=== PATIENT | female | born 2000 | race Caucasian/White ===

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

== ENCOUNTER 2021-01-21 03:03 | Emergency (ER) | payer OTHER ==
[2021-01-21 03:27] LABS: BASO % 0.2 % (0.0-1.0); LYMPH # 3.2 10*3/uL (1.3-4.4); LYMPH % 26.2 % (27.0-41.0); MEAN CORPUSCULAR HGB 30.5 pg (27.0-31.0); MEAN CORPUSCULAR HGB CONC 32.8 g/dl (33.0-37.0); MONO # 1.2 10*3/uL (0.1-1.0); NEUT # 7.7 10*3/uL (2.3-7.9); NEUT % 63.2 % (47.0-73.0); PLATELET COUNT AUTOMATED 250 10*3/uL (130-400); RED CELL DISTRI WIDTH 13.4 % (0-14.5); WHITE BLOOD COUNT 12.2 10*3/uL (4.8-10.8)
[2021-01-21 03:28] LABS: BILIRUBIN Negative (Negative); BLOOD Negative (Negative); CLARITY Clear (Clear); COLOR Yellow (Yellow); GLUCOSE Negative (Negative); KETONE Negative (Negative); LEUKO ESTERASE Negative (Negative); NITRITE Positive (Negative); PH 5.5 (4.5-8.0); SPECIFIC GRAVITY <= 1.005 (1.001-1.030); UROBILINOGEN 0.2 E.U./dl (0.0-1.0)
[2021-01-21 03:42] LABS: URINE AMPHETAMINES < 1000 (1000ng/ml); URINE BENZODIAZEPINES < 200 (200ng/ml); URINE CANNABINOIDS (THC) > 50 (50ng/ml); URINE COCAINE < 300 (300ng/ml); URINE METHADONE < 300 (300ng/ml); URINE OPIATES < 300 (300ng/ml)
[2021-01-21 03:43] LABS: BACTERIA 3+
[2021-01-21 03:44] LABS: ALBUMIN 3.9 gm/dl (3.1-4.5); ALKALINE PHOSPHATASE 53 U/L (45-117); BUN 10 mg/dl (7-24); CHLORIDE 106 mmol/L (98-107); CREATININE 0.72 mg/dL (0.55-1.02); POTASSIUM 2.9 mmol/L (3.5-5.1); SGOT/AST 13 IU/L (3-35); SGPT/ALT 26 U/L (12-78); SODIUM 140 mmol/L (136-145); TOTAL PROTEIN 7.4 gm/dL (6.4-8.2); TROPONIN I < 0.015 ng/ml (<0.045); URINE BARBITURATES < 200 (200ng/ml); URINE PHENCYCLIDINE < 25 (25ng/ml)
[2021-01-21 09:23] LABS: BUN 11 mg/dl (7-24); CHLORIDE 110 mmol/L (98-107); CREATININE 0.64 mg/dL (0.55-1.02); POTASSIUM 3.4 mmol/L (3.5-5.1); SODIUM 142 mmol/L (136-145)
[2021-01-21 09:27] LABS: ETHYL ALCOHOL < 3.0 mg/dl (<3)
[2021-01-21] MEDS ORDERED: VIMPAT50 MG PO (15:06)
== END 2021-01-21 15:16 | disposition left against medical advice (07) ==
LOC: ED 03:03
PROVIDERS: Emergency Medicine
DX: R56.9 Unspecified convulsions (principal); Z20.822 Contact with and (suspected) exposure to COVID-19; F10.929 Alcohol use, unspecified with intoxication, unspecified; Z88.0 Allergy status to penicillin; Z91.013 Allergy to seafood; Y90.9 Presence of alcohol in blood, level not specified

== ENCOUNTER 2022-08-15 19:18 | Emergency (ER) | payer OTHER ==
[~2022-08-15] VITALS: Ht 160 cm; Wt 85.7 kg
[~2022-08-15 19:18] MED LIST: VIMPAT50 MG PO
[2022-08-15] MEDS ORDERED: LAMICTAL ODT50 MG PO (20:07)
[2022-08-15] MEDS ORDERED: SEROQUEL100 MG PO (20:07)
[2022-08-15] MEDS ORDERED: BUSPIRONE30 MG PO (20:08)
[2022-08-15] MEDS ORDERED: ZITHROMAX250 MG PO (22:12)
== END 2022-08-15 22:21 | disposition home or self-care (01) ==
LOC: ED 19:18
DX: J02.9 Acute pharyngitis, unspecified (principal); J35.1 Hypertrophy of tonsils; F41.9 Anxiety disorder, unspecified; F31.9 Bipolar disorder, unspecified; Z88.0 Allergy status to penicillin; Z88.6 Allergy status to analgesic agent; Z91.013 Allergy to seafood

== ENCOUNTER 2023-01-01 15:40 | Emergency (ER) | payer OTHER ==
[~2023-01-01] VITALS: Ht 157.4 cm; Wt 91.2 kg
[~2023-01-01 15:40] MED LIST changes: +BUSPIRONE30 MG PO; +LAMICTAL ODT50 MG PO; +SEROQUEL100 MG PO; +ZITHROMAX250 MG PO
== END 2023-01-01 18:54 | disposition short-term general hospital (02) ==
LOC: ED 15:40
DX: T74.21XA Adult sexual abuse, confirmed, initial encounter (principal); F31.9 Bipolar disorder, unspecified; F41.9 Anxiety disorder, unspecified; Z88.0 Allergy status to penicillin; Z88.6 Allergy status to analgesic agent; Z91.013 Allergy to seafood; Z98.890 Other specified postprocedural states; Z87.891 Personal history of nicotine dependence

== ENCOUNTER 2024-01-31 16:41 | Emergency (ER) | payer OTHER ==
[~2024-01-31] VITALS: Ht 157.4 cm; Wt 84.4 kg
[2024-01-31 18:04] LABS: BASO % 0.3 % (0.0-1.0); EOS # 0.1 10*3/uL (0.0-0.4); EOS % 1.2 % (1.0-4.0); HEMATOCRIT 37.2 % (37.0-47.0); MEAN CELL VOLUME 94.7 fl (81.0-99.0); MEAN CORPUSCULAR HGB 30.3 pg (27.0-31.0); MEAN PLATELET VOLUME 10.5 fl (9.6-12.3); MONO # 0.7 10*3/uL (0.1-1.0); MONO % 9.1 % (3.0-9.0); NEUT % 52.6 % (47.0-73.0); PLATELET COUNT AUTOMATED 217 10*3/uL (130-400); RED BLOOD COUNT 3.93 10*6/uL (4.10-5.10); RED CELL DISTRI WIDTH 12.6 % (0-14.5); WHITE BLOOD COUNT 7.7 10*3/uL (4.8-10.8)
[2024-01-31 18:31] LABS: ALKALINE PHOSPHATASE 43 U/L (46-116); BUN 11 mg/dl (9-23); CHLORIDE 106 mmol/L (98-107); POTASSIUM 4.3 mmol/L (3.4-5.1); SGPT/ALT 50 U/L (5-49); TOTAL PROTEIN 6.6 gm/dL (6.0-8.0)
== END 2024-01-31 19:32 | disposition home or self-care (01) ==
LOC: ED 16:41
PROVIDERS: Physician Assistant Medical
DX: R60.0 Localized edema (principal); F31.9 Bipolar disorder, unspecified; F41.9 Anxiety disorder, unspecified; Z88.0 Allergy status to penicillin; Z88.6 Allergy status to analgesic agent; Z91.013 Allergy to seafood; Z90.49 Acquired absence of other specified parts of digestive tract